=== PATIENT | female | born 1995 | race Caucasian/White ===

== ENCOUNTER 2019-04-16 17:55 | Emergency (ER) | payer OTHER ==
[~2019-04-16] VITALS: Ht 162.6 cm; Wt 65.8 kg
[2019-04-16] MEDS ORDERED: PROTONIX20 MG (18:04)
[2019-04-16] MEDS ORDERED: PRENA1 TRUE CO1 EACH (18:04)
[2019-04-16] MEDS ORDERED: FOLIC ACID0.8 M1 (18:04)
[2019-04-16] MEDS ORDERED: ZOFRAN8 MG (18:04)
[2019-04-16] MEDS ORDERED: ALLERGY RELIEF10 M3 PO (22:13)
[2019-04-16] MEDS ORDERED: ZITHROMAX500 MG PO (22:13)
== END 2019-04-16 22:31 | disposition home or self-care (01) ==
LOC: ER 17:55
DX: J32.8 Other chronic sinusitis (principal); B96.0 Mycoplasma pneumoniae [M. pneumoniae] as the cause of diseases classified elsewhere